=== PATIENT | male | born 1980 | race Caucasian/White ===

== ENCOUNTER 2018-08-10 21:41 | Emergency (ER) | payer BC ==
[2018-08-10 23:14] LABS: #Basophils 0.1 thou/uL (0.0-0.2); #Eosinphils 0.2 thou/uL (0.0-0.7); #Lymphocytes 2.6 thou/uL (1.20-3.40); #Monocytes 0.6 thou/uL (0.11-0.59); %Basophils 0.8 % (0.0-1.0); %Eosinophils 2.5 % (0.0-10.0); %Lymphocytes 34.8 % (21.0-51.0); %Monocytes 7.7 % (0.0-10.0); %Neutrophils 54.1 % (42.0-75.0); Hemoglobin 13.5 g/dL (14.0-18.0); Mean Corpuscular HGB CONC 33.3 g/dL (32.0-36.0); Mean Corpuscular Hemoglobin 30.3 pg (27.0-31.0); Mean Platelet Volume 8.2 fL (7.4-10.4); Platelet Count 229 thou/uL (130-400); RBC Distribution Width 12.7 % (11.5-14.5); Red Blood Cell (RBC) Count 4.47 mill/uL (4.70-6.10); White Blood Cell (WBC) Count 7.4 thou/uL (4.8-10.8)
[2018-08-10 23:32] LABS: ALT (SGPT) 16 U/L (8-55); AST (SGOT) 14 U/L (5-34); Albumin 4.1 g/dL (3.5-5.0); Alkaline Phosphatase 71 U/L (40-150); Anion Gap 14 mmol/L (10-20); BUN (Urea Nitrogen) 13 mg/dL (8.9-20.6); Bilirubin, Total 0.2 mg/dL (0.2-1.2); Calc. Creatinine Clearance 0 mL/min (70-130); Calcium 9.4 mg/dL (7.8-10.44); Carbon Dioxide 24 mmol/L (22-29); Chloride 106 mmol/L (98-107); Estimated GFR-MDRD 87; Globulin 2.4 g/dL (2.4-3.5); Glucose 101 mg/dL (70-105); Potassium 4.3 mmol/L (3.5-5.1); Protein, Total 6.5 g/dL (6.0-8.3); Sodium 140 mmol/L (136-145)
== END 2018-08-11 00:37 | disposition home or self-care (01) ==
LOC: ERS 21:41
DX: I10 Essential (primary) hypertension (principal); K58.9 Irritable bowel syndrome, unspecified
CPT/HCPCS: 36415; 80053; 84484; 85025; 93005

== ENCOUNTER 2020-04-27 15:28 | Outpatient (CLI) | payer BC ==
--- NOTE | 2020-04-27 17:50 | CT ---
CT ABDOMEN AND PELVIS WITHOUT IV CONTRAST: 04/27/20 INDICATIONS: Nephrolithiasis. FINDINGS: The lung bases clear. Liver, spleen, and pancreas unremarkable. stomach and duodenum unremarkable. Ad renal glands normal. Kidneys unremarkable. No evidence of urinary tract calculus. The ureters are nor mal caliber. The urinary bladder is distended and unremarkable in appearance. No hydronephrosis. Small and large bowel loops are unremarkable. Appendix is visualized and appears normal. Diverticulos is of the left colon and sigmoid colon is noted. Aorta normal caliber. No adenopathy. Review of the osseous structures show degenerative disc changes at L4-5 and L5-S1. There is posterior spondylolysis at L5-S1 without significant listhesis. Posterior disc bulge with spurring at L4-5 is noted. IMPRESSION: 1. No evidence of urinary tract calcification. No hydronephrosis. 2. No acute intra-abdominal process. 3. 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 Disc bulge with p osterior spurring at L4-5. POS: [facility]
== END 2020-04-27 15:29 | disposition home or self-care (01) ==
LOC: BICCT 15:28
PROVIDERS: ATTEND Urology
DX: N20.0 Calculus of kidney (principal); M47.816 Spondylosis without myelopathy or radiculopathy, lumbar region; M47.817 Spondylosis without myelopathy or radiculopathy, lumbosacral region; M51.36 Other intervertebral disc degeneration, lumbar region
CPT/HCPCS: 36415; 74176; 84153

== ENCOUNTER 2022-10-24 09:47 | Outpatient (CLI) | payer BC ==
[2022-10-24] MEDS ORDERED: Iopamidol 370 76% 100 ML VIAL ONE (10:24)
== END 2022-10-24 09:48 | disposition home or self-care (01) ==
LOC: BICCT 09:47
PROVIDERS: ATTEND Nurse Practitioner Family
DX: R31.9 Hematuria, unspecified (principal)
CPT/HCPCS: 74178

== ENCOUNTER 2024-01-13 06:04 | Day surgery (SDC) | payer BC ==
[2024-01-12 11:35] VITALS: BMI 48.0
[2024-01-13] MEDS ORDERED: PROPOFOL 80 ML ONE (06:51)
[2024-01-13] MEDS ORDERED: Lidocaine 2% PF 5 ML VIAL ONE (06:51)
[2024-01-13] MEDS ORDERED: PHENYLEPHRINE-NS 100 MCG/ML 10 ML SYRINGE ONE (08:17)
[2024-01-13] MEDS ORDERED: Glycopyrrolate 0.2 MG/ML 5 ML SYRINGE ONE (08:17)
[2024-01-13] MEDS ORDERED: Rocuronium Bromide 10 MG/ML (10ML VIAL) ONE (10:48)
[2024-01-13] MEDS ORDERED: Lidocaine 1% PF 5 ML VIAL ONE (10:48)
== END 2024-01-13 10:08 | disposition home or self-care (01) ==
LOC: SDC 06:04
PROVIDERS: ATTEND Internal Medicine
DX: K57.30 Diverticulosis of large intestine without perforation or abscess without bleeding (principal); K64.9 Unspecified hemorrhoids; K52.832 Lymphocytic colitis; K29.50 Unspecified chronic gastritis without bleeding; K31.9 Disease of stomach and duodenum, unspecified; K52.9 Noninfective gastroenteritis and colitis, unspecified; K58.0 Irritable bowel syndrome with diarrhea; R10.84 Generalized abdominal pain; E66.01 Morbid (severe) obesity due to excess calories; K21.9 Gastro-esophageal reflux disease without esophagitis; D64.9 Anemia, unspecified; Z88.5 Allergy status to narcotic agent; Z79.899 Other long term (current) drug therapy; Z68.42 Body mass index [BMI] 45.0-49.9, adult
CPT/HCPCS: 88305; 88342; J2001; J2704